=== PATIENT | female | born 1980 | race Caucasian/White ===

== ENCOUNTER → 2023-12-03 09:25 | Outpatient (REF) | payer BC, SELFPAY | LOC: HWRCS 09:25 | PROVIDERS: ATTENDING PHYSICIAN Internal Medicine; FAMILY PHYSICIAN Nurse Practitioner | DX: R00.2 Palpitations (principal); Z82.49 Family history of ischemic heart disease and other diseases of the circulatory system; R42 Dizziness and giddiness; R60.9 Edema, unspecified | CPT/HCPCS: 93306 ==

== ENCOUNTER → 2024-03-19 08:44 | Outpatient (REF) | payer BC, SELFPAY | LOC: WDC 08:44 | PROVIDERS: ATTENDING PHYSICIAN Nurse Practitioner | DX: Z12.31 Encounter for screening mammogram for malignant neoplasm of breast (principal) | CPT/HCPCS: 77063; 77067 ==

== ENCOUNTER → 2024-10-07 14:57 | Outpatient (REF) | payer BC, SELFPAY | LOC: HWRAD 14:57 | PROVIDERS: ATTENDING PHYSICIAN Internal Medicine Endocrinology, Diabetes & Metabolism; FAMILY PHYSICIAN Nurse Practitioner | DX: E06.3 Autoimmune thyroiditis (principal) | CPT/HCPCS: 76536 ==

== ENCOUNTER → 2025-01-12 17:34 | Outpatient (REF) | payer BC, SELFPAY | LOC: RAD 17:34 | PROVIDERS: ATTENDING PHYSICIAN Nurse Practitioner | DX: N92.0 Excessive and frequent menstruation with regular cycle (principal) | CPT/HCPCS: 76830; 76856 ==

== ENCOUNTER → 2025-03-26 09:01 | Outpatient (REF) | payer BC, SELFPAY | LOC: WDC 09:01 | PROVIDERS: ATTENDING PHYSICIAN Nurse Practitioner | DX: Z12.31 Encounter for screening mammogram for malignant neoplasm of breast (principal) | CPT/HCPCS: 77063; 77067 ==